=== PATIENT | male | born 1960 | race Caucasian/White ===

== ENCOUNTER → 2022-02-05 13:59 | Outpatient (BNVA) | payer OTHER, SELFPAY | PROVIDERS: Family Provider Family Medicine; Visit Provider Orthopaedic Surgery | DX: M46.96 Unspecified inflammatory spondylopathy, lumbar region (principal) | CPT/HCPCS: 72110; 99203; 99204 ==

== ENCOUNTER 2022-03-11 12:58 | Outpatient (CLI) | payer OTHER, SELFPAY ==
--- NOTE | 2022-03-11 13:07 | MR_ITS ---
WS: [id number] MRI LUMBAR SPINE NONCONTRAST HISTORY: Chronic back pain. COMPARISON: 02/05/2022 TECHNIQUE: Sagittal and axial multisequence imaging is submitted. Slight increase in the lordosis centered at L4-5. Otherwise normal alignment. Mild anterior wedging of T12 with no acute edema. No retropulsion. Conus terminates normally at L1. L1-L2: Normal. L2-L3: Shallow RIGHT foraminal disc protrusion. No stenosis or nerve root encroachment. Mild bilatera l ligamentum flavum hypertrophy. L3-L4: Moderate diffuse annular disc bulging and osteophytic ridging. Mild ligamentum flavum hypertro phy and facet arthritis. Fluid in the facet joints. Moderate LEFT and mild RIGHT foraminal stenosis. More significant disc encroachment and contact on the exiting LEFT L3 nerve root. L4-L5: Mild annular disc bulging with facet and ligamentum flavum hypertrophy. Mild bilateral foramin al stenosis. L5-S1: Mild central broad-based disc bulging with mild disc and osteophyte narrowing the foramina. Mi ld bilateral foraminal stenosis, LEFT greater than RIGHT. Paravertebral soft tissues are normal. MR/MR lumbar spine wo con* [id number] IMPRESSION: 1. Moderate LEFT foraminal stenosis at L3-4 and mild on the RIGHT due to disc and osteophyte disease. 2. Mild bilateral foraminal stenosis at L4-5 and L5-S1. 3. No central disc protrusion.
== END 2022-03-11 12:59 | disposition home or self-care (01) ==
LOC: RAD 12:59
PROVIDERS: Family Provider Family Medicine; Visit Provider Orthopaedic Surgery
DX: M54.9 Dorsalgia, unspecified (principal); M47.819 Spondylosis without myelopathy or radiculopathy, site unspecified; M48.00 Spinal stenosis, site unspecified
CPT/HCPCS: 72148

== ENCOUNTER → 2022-08-06 14:10 | Outpatient (BNVA) | payer OTHER, SELFPAY | PROVIDERS: Family Provider Family Medicine; Visit Provider Orthopaedic Surgery | DX: M47.816 Spondylosis without myelopathy or radiculopathy, lumbar region (principal) | CPT/HCPCS: 99213; 99214 ==